=== PATIENT | male | born 1970 | race Caucasian/White ===

== ENCOUNTER 2018-06-02 01:38 | Emergency (ER) | payer OTHER ==
[~2018-06-02] VITALS: Ht 167.6 cm; Wt 74.8 kg
--- NOTE | 2018-06-02 02:16 | ED PSYCHIATRIC COMPLAINT ---
History of Present Illness General Chief Complaint: ETOH/Drug Related Complaint Stated Complaint: BIBA FOR OVERDOSE Source: patient, EMS Exam Limitations: clinical condition, intoxication Vital Signs & Intake/Output Vital Signs & Intake/Output Vital Signs Date Time Temp Pulse Resp B/P B/P Pulse O2 O2 Flow FiO2 Mean Ox Delivery Rate 06/02 0823 98.2 88 20 119/68 94 Room Air 06/02 0636 97.8 105 18 112/57 98 Room Air 06/02 0152 94 Room Air Room Air 06/02 0146 98.5 112 18 90/60 94 Room Air Allergies Coded Allergies: Penicillins (Mild, RASH 06/02/18) Reconcile Medications Sulfamethoxazole/Trimethoprim (Bactrim Ds Tablet) 800 MG-160 MG TABLET 1 TAB PO BID otitis media Triage Note: 47 YO MALE TO 7 SP FOUND DOWN UNRESPONSIVE GIVEN NARCAN IN FIELD BY EMS SP IV ESTABLISHED. UPON ARIVAL A,A,O ADMITS TO "SNORTING BAG OF SOMETHING" Triage Nurses Notes Reviewed? yes Onset: Just prior to arrival Duration: unknown duration Timing: recent history Severity: severe Associated Symptoms: injury HPI: The patient does not recall events of last evening. Prior to admission the patient was found unresponsive Narcan was given with arousal. It is reported there was a plastic baggy emptied. He complains of having difficulty hearing and a know on the left side of his head. He denies fever chills nausea vomiting diarrhea abdominal pain chest pain shortness of breath dysuria rash bleeding. (Glynn Quintanilla MD) Past History Travel History Traveled to [place] past 21 day No Medical History Any Pertinent Medical History? 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 No (Glynn Quintanilla MD) Review of Systems Review of Systems Constitutional: Reports: no symptoms. EENTM: Reports: see HPI, hearing changes. Respiratory: Reports: no symptoms. Cardiovascular: Reports: no symptoms. GI: Reports: no symptoms. Genitourinary: Reports: no symptoms. Musculoskeletal: Reports: no symptoms. Skin: Reports: no symptoms. Neurological/Psychological: Reports: see HPI, confusion, headache. Hematologic/Endocrine: Reports: no symptoms. Immunologic/Allergic: Reports: no symptoms. All Other Systems: Reviewed and Negative (Glynn Quintanilla MD) Physical Exam Physical Exam General Appearance: well developed/nourished, alert, awake, anxious, mild distress Head: normal appearance, contusions, tenderness Eyes: Bilateral: normal appearance, PERRL, EOMI. 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 patient not suicidal (Glynn Quintanilla MD) Progress Differential Diagnosis: drug intoxication, drug overdose, drug withdrawal, electrolyte abnormality, hypoglycemia Plan of Care: Orders Procedure Date/time Status Regular Diet 06/02 B Active ED CRISIS PSYCH CONSULT 06/02 041 Active Patient Safety Monitor 06/02 0300 Active URINE DRUG SCREEN FOR ER ONLY 06/02 0205 Complete Current Medications Sig/Fahad Start time Last Medication Dose Stop Time Status Admin Trimethoprim/ 1 TAB BID 06/02 09 CAN Sulfamethoxazole (Bactrim DS) Laboratory Tests 06/02/18 0811: Urine Opiates Screen < 100, Methadone Screen < 40, Barbiturate Screen < 60, Ur Phencyclidine Scrn < 6.00, Amphetamines Screen < 100, U Benzodiazepines Scrn < 85, Urine Cocaine Screen < 50, Urine Cannabis Screen < 5.00 Diagnostic Imaging: Viewed by Me: CT Scan. Discussed w/RAD: CT Scan. Radiology Impression: No acute intracranial pathology. 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 06/02/2018 8:41:48 AM patient is awake alert and conversant. He offers no complaint at this time. He declined crisis evaluation. He states what he did was "stupid". I feel he shows good insight into what occurred. He denies SI or HI. I feel he is stable for discharge. (Kayleen DIEGO,Ciro Virk) Departure Departure Condition: Stable Referrals: Patient Has No Primary Care Dr (PCP/Family) Departure Forms: Customer Survey General Discharge Information Prescriptions: Current Visit Scripts Sulfamethoxazole/Trimethoprim (Bactrim Ds Tablet) 1 TAB PO BID #20 TAB ([place] DIEGO,Glynn) Departure Disposition: HOME OR SELF CARE Clinical Impression Primary Impression: Narcotic abuse Secondary Impressions: Alcohol intoxication Qualifiers: Complication of substance-induced condition: uncomplicated Qualified Code: F10.920 - Alcohol use, unspecified with intoxication, uncomplicated Otitis media Qualifiers: Otitis media type: unspecified Chronicity: acute Qualified Code: H66.90 - Otitis media, unspecified, unspecified ear Scalp contusion Qualifiers: Encounter type: initial encounter Qualified Code: S00.03XA - Contusion of scalp, initial encounter Additional Instructions: Bactrim as prescribed for your ear infection. He may take ibuprofen over-the- counter 600 mg every 6 hours if needed for pain. Follow-up with your primary care physician in one week if your ear pain persists. Avoid drugs and wean your alcohol. Return if any concerns or sudden worsening. Please note that there might be incidental findings in your evaluation that are unrelated to the current emergency department visit. Please notify your primary care doctor about this emergency department visit in order to obtain and review all of the testing performed so that these incidental findings can be monitored as needed. If you had an x-ray performed, please understand that some fractures or other findings may not be seen on the initial set of x-rays. If your symptoms persist you might need a repeat set of x-rays to check for such a fracture. If you had a laceration evaluated, please understand that foreign bodies such as glass or wood may not be visible to the naked eye or on plain x-rays. If the wound becomes red, swollen, increasingly more painful or if there is any drainage from the wound, please have it reevaluated by a physician for the possibility of a retained foreign body. If you're unable to follow up as outlined in the discharge instructions please return to the emergency department. Thank you for choosing the [facility] for your care. It was a pleasure to serve you today. Ciro Beyer M.D. [facility] (Kayleen DIEGO,Ciro Virk)
--- NOTE | 2018-06-02 02:57 | CT SCAN REPORT ---
EXAMINATION: CT HEAD WITHOUT CONTRAST CLINICAL INFORMATION: Overdose, left parietal contusion COMPARISON: None TECHNIQUE: Contiguous axial imaging was performed from the skull base to vertex without intravenous administration of contrast. DLP: 705.36 mGy-cm FINDINGS: Assessment in some regions is limited due to patient motion artifact. There is no evidence of acute intracranial hemorrhage or territorial infarction. No abnormal mass effect or midline shift is seen. Santizo to white matter differentiation is well preserved. No extra-axial fluid collections are identified. The ventricles are normal in size. There is no abnormal attenuation within the brain parenchyma. The osseous structures and soft tissues are normal. The right frontal sinus is not pneumatized. The remaining visualized portions of the paranasal sinuses are well-aerated. There is partial opacification of the left mastoid tip air cells. IMPRESSION: No acute intracranial pathology.
[2018-06-02] MEDS ORDERED: BACTRIM DS TAB1 EACH PO ×2 (04:13→09:18)
[2018-06-02 08:23] VITALS: BP 119/68
== END 2018-06-02 09:09 ==
LOC: ERH 01:38
DX: S00.03XA Contusion of scalp, initial encounter (principal); F11.10 Opioid abuse, uncomplicated; F10.129 Alcohol abuse with intoxication, unspecified; H66.92 Otitis media, unspecified, left ear; F17.210 Nicotine dependence, cigarettes, uncomplicated; F32.9 Major depressive disorder, single episode, unspecified
CPT/HCPCS: 80307